=== PATIENT | male | born 1995 | race Caucasian/White ===

== ENCOUNTER 2018-09-25 12:20 | Emergency (ER) | payer BC, OTHER ==
[2018-09-25] MEDS ORDERED: Ibuprofen 600 MG TAB ONE (12:41)
== END 2018-09-25 12:48 | disposition home or self-care (01) ==
LOC: SCSER 12:20
DX: S16.1XXA Strain of muscle, fascia and tendon at neck level, initial encounter (principal); S39.012A Strain of muscle, fascia and tendon of lower back, initial encounter; F41.9 Anxiety disorder, unspecified; F17.290 Nicotine dependence, other tobacco product, uncomplicated; Z79.899 Other long term (current) drug therapy; V43.52XA Car driver injured in collision with other type car in traffic accident, initial encounter
CPT/HCPCS: 99283